=== PATIENT | male | born 1965 | race Caucasian/White ===

== ENCOUNTER → 2025-02-21 11:37 | Outpatient (REF) | payer BC, SELFPAY | LOC: MRI 3T 11:37 | PROVIDERS: ATTENDING PHYSICIAN Specialist; FAMILY PHYSICIAN Family Medicine | DX: C61 Malignant neoplasm of prostate (principal) | CPT/HCPCS: 72197; A9575 ==

== ENCOUNTER → 2025-03-07 10:51 | Outpatient (REF) | payer BC, SELFPAY | LOC: PET 10:51 | PROVIDERS: ATTENDING PHYSICIAN Specialist | DX: C61 Malignant neoplasm of prostate (principal) | CPT/HCPCS: 78815 ==